=== PATIENT | female | born 1960 | race Caucasian/White ===

== ENCOUNTER → 2018-11-15 06:47 | Outpatient (CLI) | payer BC, SELFPAY ==
--- NOTE | 2018-11-15 06:58 | CT_ITS ---
STUDY: CT SOFT TISSUE NECK WITH CONTRAST REASON FOR EXAM: Female, 58 years old. Sore throat and hoarseness RADIATION DOSAGE (If Supplied By Facility): CTDIvol = ( 22.72 ) mGy, DLP = ( 675.14 ) mGycm TECHNIQUE: The patient was scanned in a multi-detector CT scanner. High resolution transaxial imaging was performed following intravenous administration of 100CC ml of Isovue 300 contrast material. Sagittal and coronal images were reconstructed. Individualized dose optimization techniques were used for this CT. COMPARISON: None. FINDINGS: Visualized portions of the brain are unremarkable. Normal bilateral parotid glands. Normal bilateral legal officer spaces. Normal bilateral parapharyngeal spaces. Normal bilateral carotid spaces. Normal bilateral sublingual and submandibular glands and spaces. Normal visualized nasopharynx. Normal retropharyngeal space. Normal perivertebral space. Mild prominence of bilateral faucial tonsils. No evidence of peritonsillar abscess.. The visualized tongue, tongue base and oropharynx are normal. Shotty cervical lymph nodes maintain normal morphology. There is no demonstrated solid or cystic mass lesion. There is no abnormal contrast enhancement. Normal epiglottis and hypopharynx. There is symmetric prominence of bilateral lingual tonsils which fill the vallecula. The pre-epiglottic and paraglottic adipose spaces are normal. Normal visualized bilateral piriform sinuses, aryepiglottic folds, vocal cords, and arytenoid-cricoid articulations. Normal subglottic trachea. Normal visualized pulmonary apices. Normal bilateral lobes of the thyroid gland. Normal visualized paranasal sinuses. Normal visualized cervical spine. CT/Soft Tissue Neck WITH Contrast IMPRESSION: 1. Mild symmetric prominence of the lingual tonsils which filled the vallecula 2. Shotty bilateral cervical chain lymph nodes. Electronically Signed: Marquise Aguilar MD at 3:01 EST Tel , Service support ,
== END ==
DX: R49.0 Dysphonia (principal); J38.7 Other diseases of larynx
CPT/HCPCS: 70491; Q9967